=== PATIENT | female | born 1960 | race African-American/Black ===

== ENCOUNTER 2020-03-22 06:48 | Day surgery (SDC) | payer OTHER, SELFPAY ==
[~2020-03-22] VITALS: Ht 167.6 cm; Wt 86.2 kg
[~2020-03-22 06:48] MED LIST: CLINDAMYCIN PHOS 600 MG/ D5W 50 ML PREMIX IV ONE
[2020-03-22] MEDS ORDERED: CLINDAMYCIN PHOS 600 MG/ D5W 50 ML PREMIX IV ONE ×2 (07:00)
[2020-03-22] MEDS ORDERED: POLYMYXIN 500,000/BACIT.10,000 UNITS in NS IRR 1 L IR ONE (08:49)
[2020-03-22] MEDS ORDERED: SUGAMMADEX SODIUM 200 MG/2 ML VIAL IV ONE (09:57)
[2020-03-22] MEDS ORDERED: BUPIVACAINE /PF 0.25% 30 ML VIAL INJ ONE (09:57)
[2020-03-22] MEDS ORDERED: PROPOFOL 200MG/ 20ML VIAL (DIPRIVAN) IV ONE (09:57)
[2020-03-22] MEDS ORDERED: SEVOFLURANE 15 MIN GAS INH ONE (09:57)
[2020-03-22] MEDS ORDERED: MIDAZOLAM HCL 5 MG/ML VIAL (VERSED) IV ONE (09:57)
[2020-03-22] MEDS ORDERED: LR 1,000 ML IV.SOLN IV ONE (09:57)
[2020-03-22] MEDS ORDERED: SUCCINYLCHOLINE CHLORIDE 20 MG/ML(QUELICIN) ONE (09:57)
[2020-03-22] MEDS ORDERED: fentaNYL CITRATE/PF 100 MCG/2 ML AMP ONE (09:57)
[2020-03-22] MEDS ORDERED: METOPROLOL TARTRATE 5 MG/5 ML VIAL ONE (09:57)
[2020-03-22] MEDS ORDERED: HYDROmorphone 1 MG INJ. 1 MG/ML AMPUL IVP PRN ×2 (10:00→11:15)
[2020-03-22] MEDS ORDERED: D5/0.45 NS 1,000 ML IV SCH (10:00)
[2020-03-22] MEDS ORDERED: HYDROcodone/ACETAMIN 5-325 MG TAB (NORCO/ VICODIN) PO PRN ×2 (10:00)
[2020-03-22] MEDS ORDERED: HYDROmorphone 1 MG INJ. 1 MG/ML AMPUL ONE (11:14)
[2020-03-22] MEDS ORDERED: METOCLOPRAMIDE HCL 10 MG/2 ML VIAL IVP PRN (11:15)
[2020-03-22] MEDS ORDERED: ONDANSETRON HCL 4 MG/2 ML VIAL IVP PRN (11:15)
[2020-03-22] MEDS ORDERED: LR 1,000 ML IV SCH (11:15)
[2020-03-22] MEDS ORDERED: MORPHINE 4 MG/ML INJ. SYRINGE IVP PRN (11:15)
[2020-03-22] MEDS ORDERED: KETOROLAC TROMETHAMINE 30 MG VIAL IVP PRN (11:15)
[2020-03-22] MEDS ORDERED: MEPERIDINE HCL/PF 25 MG/ML DISP.SYRIN IVP PRN (11:15)
[2020-03-22 11:35] VITALS: BP_SYST 138
== END 2020-03-22 12:20 | disposition home or self-care (01) ==
LOC: SMU 06:48 → SDS 06:48 → SMU 08:34 → SDS 12:20
PROVIDERS: ATTEND Colon & Rectal Surgery
DX: K43.0 Incisional hernia with obstruction, without gangrene (principal); Z90.49 Acquired absence of other specified parts of digestive tract; E66.9 Obesity, unspecified; Z87.891 Personal history of nicotine dependence; Z79.899 Other long term (current) drug therapy; Z20.828 Contact with and (suspected) exposure to other viral communicable diseases
CPT/HCPCS: 49561; 49568; C1781; J1170; J3490; U0003; C9399; J0330; J2250; J2704; J3010; J7120